=== PATIENT | female | born 1945 | race Asian ===

== ENCOUNTER 2022-04-05 11:59 | Inpatient (IN) | payer OTHER ==
[~2022-04-05] VITALS: Ht 157.5 cm; Wt 58.3 kg
[2022-04-05 12:05] VITALS: BP_SYST 123
[2022-04-05 12:58] LABS: BASOPHILS # (AUTO) 0.1 K/uL (0.0-0.2); BASOPHILS % (AUTO) 1.1 % (0.0-2.0); EOSINOPHILS # (AUTO) 0.1 K/uL (0.0-0.4); EOSINOPHILS % (AUTO) 1.1 % (0.0-4.0); HEMATOCRIT 39.1 % (36-48); LYMPHOCYTES # (AUTO) 1.9 K/uL (1.0-5.5); MEAN CORPUSCULAR HEMOGLOBIN 28 pg (27-31); MEAN CORPUSCULAR HGB CONC 33 % (32-36); MEAN CORPUSCULAR VOLUME 84 fL (79.0-98.0); MONOCYTES # (AUTO) 0.7 K/uL (0.0-1.0); MONOCYTES % (AUTO) 7.8 % (1.7-9.3); NEUTROPHILS # (AUTO) 5.6 K/uL (1.8-7.7); PLATELET COUNT (AUTO) 320 K/uL (130-430); RED BLOOD CELL COUNT(AUTO) 4.64 MIL/uL (4.2-6.2); RED CELL DISTRIBUTION WIDTH 14.9 % (9.0-15.0); WHITE BLOOD COUNT (AUTO) 8.3 K/uL (4.8-10.8)
[2022-04-05 13:38] LABS: ANION GAP 6 (5-15); CALCIUM 8.8 mg/dL (8.4-11.0); CHLORIDE 104 mmol/L (98-107); CREATININE 0.86 mg/dL (0.55-1.30); GLUCOSE 114 mg/dL (70-99); UREA NITROGEN, BLOOD 12 mg/dL (8-21)
[2022-04-05 13:45] LABS: ALANINE AMINOTRANSFERASE 46 U/L (12-78); ALBUMIN 3.3 g/dL (3.4-4.8); ASPARTATE AMINOTRANSFERASE 27 U/L (10-37); TOTAL BILIRUBIN 0.4 mg/dL (0.0-1.0)
[2022-04-05] MEDS ORDERED: AZITHROMYCIN 500 MG in NS 250 ML IV ONE (15:15)
[2022-04-05] MEDS ORDERED: cefTRIAXone 1 GM IVPB PREMIX 50 ML IV ONE (15:15)
[2022-04-05] MEDS ORDERED: AZITHROMYCIN 500 MG/VIAL (ZITHROMAX) IV ONE (16:03)
[2022-04-05] MEDS ORDERED: FUROSEMIDE 20 MG/2 ML VIAL IVP ONE (16:30)
[2022-04-05] MEDS ORDERED: VERA240T93 (16:48)
[2022-04-05] MEDS ORDERED: HYDR12.585 PO (16:48)
[2022-04-05 19:57] VITALS: BP_SYST 116
[2022-04-05] MEDS ORDERED: TEMAZEPAM 7.5 MG CAPSULE PO ONE (22:57)
[2022-04-05] MEDS ORDERED: ACETAMINOPHEN 325 MG TABLET PO PRN (23:00)
[2022-04-06] VITALS (7 sets, daily range): BP systolic 107–139
[2022-04-06 06:29] LABS: BASOPHILS # (AUTO) 0.1 K/uL (0.0-0.2); BASOPHILS % (AUTO) 0.9 % (0.0-2.0); EOSINOPHILS # (AUTO) 0.2 K/uL (0.0-0.4); EOSINOPHILS % (AUTO) 2.7 % (0.0-4.0); HEMATOCRIT 38.3 % (36-48); HEMOGLOBIN 12.7 g/dL (12.0-16.0); LYMPHOCYTES # (AUTO) 1.7 K/uL (1.0-5.5); LYMPHOCYTES % (AUTO) 27.9 % (20.5-51.5); MEAN CORPUSCULAR HEMOGLOBIN 28 pg (27-31); MEAN CORPUSCULAR HGB CONC 33 % (32-36); MEAN CORPUSCULAR VOLUME 85 fL (79.0-98.0); MONOCYTES # (AUTO) 0.5 K/uL (0.0-1.0); MONOCYTES % (AUTO) 8.8 % (1.7-9.3); NEUTROPHILS # (AUTO) 3.7 K/uL (1.8-7.7); NEUTROPHILS % (AUTO) 59.7 % (40.0-70.0); PLATELET COUNT (AUTO) 296 K/uL (130-430); RED BLOOD CELL COUNT(AUTO) 4.52 MIL/uL (4.2-6.2); WHITE BLOOD COUNT (AUTO) 6.2 K/uL (4.8-10.8)
[2022-04-06 07:37] LABS: ALANINE AMINOTRANSFERASE 41 U/L (12-78); ALBUMIN 3.1 g/dL (3.4-4.8); ANION GAP 9 (5-15); ASPARTATE AMINOTRANSFERASE 24 U/L (10-37); CALCIUM 8.4 mg/dL (8.4-11.0); CHLORIDE 106 mmol/L (98-107); CREATININE 0.93 mg/dL (0.55-1.30); GLUCOSE 115 mg/dL (70-99); TOTAL BILIRUBIN 0.6 mg/dL (0.0-1.0); UREA NITROGEN, BLOOD 11 mg/dL (8-21)
[2022-04-06] MEDS: DOCUSATE SODIUM 100 MG CAPSULE PO SCH ×2 (08:32→21:03)
[2022-04-06] MEDS ORDERED: POTASSIUM CHLORIDE 20 MEQ/PKT PACKET PO ONE (11:30)
[2022-04-06] MEDS ORDERED: VERAPAMIL HCL SCH (12:45)
[2022-04-06] MEDS ORDERED: HYDROCHLOROTHIAZIDE 12.5 MG CAPSULE (HCTZ) PO ONE (13:15)
[2022-04-06] MEDS ORDERED: VERAPAMIL HCL 120 MG TABLET.SA PO ONE (13:45)
[2022-04-06] MEDS ORDERED: FUROSEMIDE 40 MG/4 ML VIAL IVP ONE (17:00)
[2022-04-06] MEDS ORDERED: TEMAZEPAM 7.5 MG CAPSULE PO SCH (21:00)
[2022-04-06] MEDS: CARVEDILOL 6.25 MG TABLET (COREG) PO SCH (21:01)
[2022-04-06] MEDS: VERAPAMIL HCL 120 MG TABLET.SA PO SCH (21:02)
[2022-04-07 02:00] VITALS: BP_SYST 112
[2022-04-07 06:58] LABS: BASOPHILS # (AUTO) 0.1 K/uL (0.0-0.2); BASOPHILS % (AUTO) 1.3 % (0.0-2.0); EOSINOPHILS # (AUTO) 0.2 K/uL (0.0-0.4); EOSINOPHILS % (AUTO) 2.4 % (0.0-4.0); HEMATOCRIT 37.5 % (36-48); HEMOGLOBIN 12.7 g/dL (12.0-16.0); LYMPHOCYTES # (AUTO) 1.4 K/uL (1.0-5.5); LYMPHOCYTES % (AUTO) 20.1 % (20.5-51.5); MEAN CORPUSCULAR HEMOGLOBIN 29 pg (27-31); MEAN CORPUSCULAR HGB CONC 34 % (32-36); MEAN CORPUSCULAR VOLUME 84 fL (79.0-98.0); MONOCYTES # (AUTO) 0.5 K/uL (0.0-1.0); MONOCYTES % (AUTO) 7.8 % (1.7-9.3); NEUTROPHILS # (AUTO) 4.8 K/uL (1.8-7.7); NEUTROPHILS % (AUTO) 68.4 % (40.0-70.0); PLATELET COUNT (AUTO) 305 K/uL (130-430); RED BLOOD CELL COUNT(AUTO) 4.46 MIL/uL (4.2-6.2); RED CELL DISTRIBUTION WIDTH 14.7 % (9.0-15.0)
[2022-04-07 07:20] VITALS: BP_SYST 96
[2022-04-07 07:38] LABS: ALANINE AMINOTRANSFERASE 34 U/L (12-78); ALBUMIN 3.1 g/dL (3.4-4.8); ANION GAP 10 (5-15); ASPARTATE AMINOTRANSFERASE 27 U/L (10-37); CALCIUM 8.6 mg/dL (8.4-11.0); CHLORIDE 104 mmol/L (98-107); CREATININE 1.03 mg/dL (0.55-1.30); GLUCOSE 109 mg/dL (70-99); TOTAL BILIRUBIN 0.6 mg/dL (0.0-1.0); UREA NITROGEN, BLOOD 19 mg/dL (8-21)
[2022-04-07] MEDS: DOCUSATE SODIUM 100 MG CAPSULE PO SCH (08:58)
[2022-04-07 09:00] VITALS: BP_SYST 105
[2022-04-07] MEDS ORDERED: HYDROCHLOROTHIAZIDE 12.5 MG CAPSULE (HCTZ) PO SCH (09:00)
[2022-04-07] MEDS: VERAPAMIL HCL 120 MG TABLET.SA PO SCH (09:00)
[2022-04-07] MEDS: CARVEDILOL 6.25 MG TABLET (COREG) PO SCH (09:02)
[2022-04-07] MEDS ORDERED: POTASSIUM CHLORIDE 20 MEQ/PKT PACKET PO ONE (10:15)
[2022-04-07 11:31] VITALS: BP_SYST 116
[2022-04-07 15:33] VITALS: BP_SYST 111
[2022-04-07] MEDS ORDERED: COR6.25 PO (16:57)
[2022-04-07] MEDS ORDERED: DOCU-144 PO (16:57)
[2022-04-07] MEDS ORDERED: TEMA7.5C2 PO (16:57)
[2022-04-07] MEDS ORDERED: METH-776 PO (17:01)
[2022-04-07] MEDS ORDERED: AZIT500T10 PO (17:01)
[2022-04-07 17:14] VITALS: BP_SYST 111
== END 2022-04-07 17:35 | disposition home or self-care (01) | DRG 203 ==
LOC: SED 11:59 → STU 16:31
PROVIDERS: ADMIT Internal Medicine; ATTEND Internal Medicine
DX: J45.901 Unspecified asthma with (acute) exacerbation (principal); E87.6 Hypokalemia; I11.0 Hypertensive heart disease with heart failure; I50.9 Heart failure, unspecified; I35.0 Nonrheumatic aortic (valve) stenosis; E88.09 Other disorders of plasma-protein metabolism, not elsewhere classified; R73.9 Hyperglycemia, unspecified; Z20.822 Contact with and (suspected) exposure to COVID-19
CPT/HCPCS: 36415; 71045; 80053; 83605; 83735; 83880; 84484; 85025; 87040; 93005; 93306; 99285; G0378; J0456; J0696; J1940

== ENCOUNTER 2022-05-12 13:28 | Inpatient (IN) | payer OTHER ==
[~2022-05-12] VITALS: Ht 160 cm; Wt 58.5 kg
[2022-05-12 13:28] VITALS: BP_SYST 123
[~2022-05-12 13:28] MED LIST: AZIT500T10 PO; COR6.25 PO; DOCU-144 PO; HYDR12.585 PO; METH-776 PO; TEMA7.5C2 PO; VERA240T93
[2022-05-12 14:28] LABS: BASOPHILS # (AUTO) 0.1 K/uL (0.0-0.2); EOSINOPHILS # (AUTO) 0.1 K/uL (0.0-0.4); EOSINOPHILS % (AUTO) 0.9 % (0.0-4.0); HEMATOCRIT 40.8 % (36-48); HEMOGLOBIN 13.5 g/dL (12.0-16.0); LYMPHOCYTES # (AUTO) 1.9 K/uL (1.0-5.5); LYMPHOCYTES % (AUTO) 25.4 % (20.5-51.5); MEAN CORPUSCULAR HEMOGLOBIN 28 pg (27-31); MEAN CORPUSCULAR HGB CONC 33 % (32-36); MEAN CORPUSCULAR VOLUME 86 fL (79.0-98.0); MONOCYTES # (AUTO) 0.7 K/uL (0.0-1.0); MONOCYTES % (AUTO) 8.7 % (1.7-9.3); NEUTROPHILS # (AUTO) 4.8 K/uL (1.8-7.7); PLATELET COUNT (AUTO) 259 K/uL (130-430); RED BLOOD CELL COUNT(AUTO) 4.75 MIL/uL (4.2-6.2); RED CELL DISTRIBUTION WIDTH 15.4 % (9.0-15.0); WHITE BLOOD COUNT (AUTO) 7.5 K/uL (4.8-10.8)
[2022-05-12 14:42] LABS: ANION GAP 9 (5-15); CALCIUM 8.3 mg/dL (8.4-11.0); CHLORIDE 104 mmol/L (98-107); GLUCOSE 130 mg/dL (70-99); UREA NITROGEN, BLOOD 13 mg/dL (8-21)
[2022-05-12 14:49] LABS: ALANINE AMINOTRANSFERASE 56 U/L (12-78); ALBUMIN 3.2 g/dL (3.4-4.8); ASPARTATE AMINOTRANSFERASE 30 U/L (10-37); TOTAL BILIRUBIN 0.7 mg/dL (0.0-1.0)
[2022-05-12 15:02] LABS: PROTHROMBIN TIME 10.5 SECS (9.5-12.5)
[2022-05-12] MEDS ORDERED: NITROGLYCERIN 1 INCH (GM) OINT. TP ONE (16:45)
[2022-05-12] MEDS ORDERED: FUROSEMIDE 40 MG/4 ML VIAL IVP ONE ×2 (16:45→19:00)
[2022-05-12 18:48] LABS: BILIRUBIN,URINE NEGATIVE (NEGATIVE); BLOOD, URINE NEGATIVE (NEGATIVE); COLOR,URINE YELLOW (YELLOW); GLUCOSE,URINE NEGATIVE (NEGATIVE); KETONES,URINE 3+ (NEGATIVE); LEUKOCYTE ESTERASE ,URINE 1+ (NEGATIVE); NITRITE, URINE NEGATIVE (NEGATIVE); PROTEIN URINE NEGATIVE (NEGATIVE); UROBILINOGEN,URINE 0.2 (0.2-1.0)
[2022-05-12 18:58] LABS: CLARITY/URINE SLIGHTLY HAZY (CLEAR)
[2022-05-12 19:05] LABS: BACTERIA,URINE FEW /HPF (None Seen); MUCUS,URINE 1+ /LPF (None Seen); RBC,URINE NONE SEEN /HPF (0-3)
[2022-05-12 21:13] VITALS: BP_SYST 128
[2022-05-12] MEDS: FUROSEMIDE 40 MG/4 ML VIAL IVP SCH (22:28)
[2022-05-13 00:39] VITALS: BP_SYST 138
[2022-05-13] MEDS: FUROSEMIDE 40 MG/4 ML VIAL IVP SCH ×3 (06:35→22:06)
[2022-05-13 08:00] VITALS: BP_SYST 118
[2022-05-13] MEDS ORDERED: LOSARTAN POTASSIUM 25 MG TABLET PO ONE (12:15)
[2022-05-13 16:00] VITALS: BP_SYST 134
[2022-05-13 20:11] VITALS: BP_SYST 112
[2022-05-13] MEDS: LOSARTAN POTASSIUM 25 MG TABLET PO SCH (22:05)
[2022-05-14] VITALS: BP_SYST 102
[2022-05-14 05:27] LABS: BASOPHILS # (AUTO) 0.1 K/uL (0.0-0.2); EOSINOPHILS # (AUTO) 0.1 K/uL (0.0-0.4); EOSINOPHILS % (AUTO) 1.4 % (0.0-4.0); HEMATOCRIT 47.4 % (36-48); HEMOGLOBIN 15.9 g/dL (12.0-16.0); LYMPHOCYTES # (AUTO) 1.9 K/uL (1.0-5.5); LYMPHOCYTES % (AUTO) 23.5 % (20.5-51.5); MEAN CORPUSCULAR HEMOGLOBIN 28 pg (27-31); MEAN CORPUSCULAR HGB CONC 34 % (32-36); MEAN CORPUSCULAR VOLUME 85 fL (79.0-98.0); MONOCYTES # (AUTO) 0.9 K/uL (0.0-1.0); MONOCYTES % (AUTO) 11.6 % (1.7-9.3); NEUTROPHILS # (AUTO) 5.1 K/uL (1.8-7.7); NEUTROPHILS % (AUTO) 62.5 % (40.0-70.0); PLATELET COUNT (AUTO) 318 K/uL (130-430); RED BLOOD CELL COUNT(AUTO) 5.59 MIL/uL (4.2-6.2); RED CELL DISTRIBUTION WIDTH 15.5 % (9.0-15.0); WHITE BLOOD COUNT (AUTO) 8.1 K/uL (4.8-10.8)
[2022-05-14 05:32] LABS: ANION GAP 10 (5-15); CALCIUM 8.9 mg/dL (8.4-11.0); CHLORIDE 102 mmol/L (98-107); CREATININE 1.06 mg/dL (0.55-1.30); GLUCOSE 110 mg/dL (70-99); UREA NITROGEN, BLOOD 17 mg/dL (8-21)
[2022-05-14 08:00] VITALS: BP_SYST 100
[2022-05-14] MEDS: LOSARTAN POTASSIUM 25 MG TABLET PO SCH ×2 (09:00→21:00)
[2022-05-14 11:30] VITALS: BP_SYST 113
[2022-05-14] MEDS: FUROSEMIDE 40 MG/4 ML VIAL IVP SCH ×2 (14:24→21:17)
[2022-05-14] MEDS ORDERED: POTASSIUM CHLORIDE 20 MEQ TAB.PRT.SR PO ONE (15:30)
[2022-05-14 17:34] VITALS: BP_SYST 116; BP_SYST 145
[2022-05-14 20:25] VITALS: BP_SYST 104
[2022-05-15 00:30] VITALS: BP_SYST 108
[2022-05-15 06:36] LABS: BASOPHILS # (AUTO) 0.3 K/uL (0.0-0.2); BASOPHILS % (AUTO) 3.5 % (0.0-2.0); EOSINOPHILS # (AUTO) 0.2 K/uL (0.0-0.4); EOSINOPHILS % (AUTO) 2.9 % (0.0-4.0); HEMATOCRIT 42.3 % (36-48); LYMPHOCYTES # (AUTO) 1.9 K/uL (1.0-5.5); MEAN CORPUSCULAR HEMOGLOBIN 28 pg (27-31); MEAN CORPUSCULAR HGB CONC 33 % (32-36); MEAN CORPUSCULAR VOLUME 84 fL (79.0-98.0); MONOCYTES # (AUTO) 0.7 K/uL (0.0-1.0); MONOCYTES % (AUTO) 9.3 % (1.7-9.3); NEUTROPHILS # (AUTO) 4.1 K/uL (1.8-7.7); NEUTROPHILS % (AUTO) 57.3 % (40.0-70.0); PLATELET COUNT (AUTO) 271 K/uL (130-430); RED BLOOD CELL COUNT(AUTO) 5.02 MIL/uL (4.2-6.2); RED CELL DISTRIBUTION WIDTH 15.3 % (9.0-15.0); WHITE BLOOD COUNT (AUTO) 7.1 K/uL (4.8-10.8)
[2022-05-15 07:02] LABS: ANION GAP 7 (5-15); CALCIUM 8.7 mg/dL (8.4-11.0); CHLORIDE 105 mmol/L (98-107); CREATININE 1.08 mg/dL (0.55-1.30); GLUCOSE 151 mg/dL (70-99); UREA NITROGEN, BLOOD 19 mg/dL (8-21)
[2022-05-15 08:00] VITALS: BP_SYST 100
[2022-05-15] MEDS: LOSARTAN POTASSIUM 25 MG TABLET PO SCH (09:00)
[2022-05-15] MEDS: FUROSEMIDE 40 MG/4 ML VIAL IVP SCH (09:00)
[2022-05-15 12:00] VITALS: BP_SYST 102
[2022-05-15 12:19] VITALS: BP_SYST 136
[2022-05-15] MEDS ORDERED: LOSA25TA3 PO (13:12)
[2022-05-15] MEDS ORDERED: POTASSIUM CHLORIDE 20 MEQ TAB.PRT.SR PO ONE (13:45)
== END 2022-05-15 21:09 | disposition home or self-care (01) | DRG 291 ==
LOC: SED 13:28 → STU 17:07 → SMU 05-14 16:36
PROVIDERS: ADMIT Specialist; ATTEND Specialist
DX: I11.0 Hypertensive heart disease with heart failure (principal); I50.43 Acute on chronic combined systolic (congestive) and diastolic (congestive) heart failure; G47.00 Insomnia, unspecified; I35.8 Other nonrheumatic aortic valve disorders; E78.5 Hyperlipidemia, unspecified; Z20.822 Contact with and (suspected) exposure to COVID-19; K59.00 Constipation, unspecified; I43 Cardiomyopathy in diseases classified elsewhere; I25.10 Atherosclerotic heart disease of native coronary artery without angina pectoris; Z88.0 Allergy status to penicillin; Z90.710 Acquired absence of both cervix and uterus
CPT/HCPCS: 36415; 36600; 71045; 80048; 80053; 81000; 82803-TC; 83605; 83880; 84484; 85025; 85610-TC; 85730-TC; 87040; 87086; 93005; 96365; 99285; G0378; J1940; J1956

== ENCOUNTER 2022-06-11 14:43 | Inpatient (IN) | payer OTHER ==
[~2022-06-11] VITALS: Ht 160 cm; Wt 56.4 kg
[~2022-06-11 14:43] MED LIST changes: +LOSA25TA3 PO
[2022-06-11 14:49] VITALS: BP_SYST 136
[2022-06-11] MEDS ORDERED: ONDANSETRON 4 MG ODT TAB PO ONE (15:30)
[2022-06-11 15:46] LABS: BASOPHILS % (AUTO) 0.6 % (0.0-2.0); EOSINOPHILS % (AUTO) 0.4 % (0.0-4.0); HEMOGLOBIN 14.1 g/dL (12.0-16.0); LYMPHOCYTES # (AUTO) 2.3 K/uL (1.0-5.5); LYMPHOCYTES % (AUTO) 30.8 % (20.5-51.5); MEAN CORPUSCULAR HEMOGLOBIN 29 pg (27-31); MEAN CORPUSCULAR HGB CONC 33 % (32-36); MEAN CORPUSCULAR VOLUME 87 fL (79.0-98.0); MONOCYTES # (AUTO) 0.7 K/uL (0.0-1.0); MONOCYTES % (AUTO) 8.6 % (1.7-9.3); NEUTROPHILS # (AUTO) 4.5 K/uL (1.8-7.7); NEUTROPHILS % (AUTO) 59.6 % (40.0-70.0); PLATELET COUNT (AUTO) 203 K/uL (130-430); RED BLOOD CELL COUNT(AUTO) 4.95 MIL/uL (4.2-6.2); RED CELL DISTRIBUTION WIDTH 16.3 % (9.0-15.0); WHITE BLOOD COUNT (AUTO) 7.6 K/uL (4.8-10.8)
[2022-06-11 15:58] LABS: ANION GAP 11 (5-15); CALCIUM 8.7 mg/dL (8.4-11.0); CHLORIDE 108 mmol/L (98-107); GLUCOSE 142 mg/dL (70-99); UREA NITROGEN, BLOOD 53 mg/dL (8-21)
[2022-06-11 16:03] LABS: ALANINE AMINOTRANSFERASE 93 U/L (12-78); ALBUMIN 3.2 g/dL (3.4-4.8); ASPARTATE AMINOTRANSFERASE 70 U/L (10-37); LIPASE 107 U/L (73-393); TOTAL BILIRUBIN 1.1 mg/dL (0.0-1.0)
[2022-06-11] MEDS ORDERED: PANTOPRAZOLE SODIUM 40 MG/VIAL (PROTONIX) IVP ONE (16:45)
[2022-06-11] MEDS ORDERED: NS 500 ML IV ONE (16:45)
[2022-06-11] MEDS ORDERED: ONDANSETRON HCL 4 MG/2 ML VIAL IVP ONE (16:45)
[2022-06-11] MEDS ORDERED: KETOROLAC TROMETHAMINE 15 MG VIAL IVP ONE (16:45)
[2022-06-11] MEDS ORDERED: FUROSEMIDE 40 MG/4 ML VIAL IVP ONE (17:30)
[2022-06-11] MEDS ORDERED: ASPIRIN 81 MG TABLET(ECOTRIN) PO ONE (18:00)
[2022-06-11 18:26] LABS: BILIRUBIN,URINE NEGATIVE (NEGATIVE); BLOOD, URINE TRACE (NEGATIVE); CLARITY/URINE CLEAR (CLEAR); COLOR,URINE YELLOW (YELLOW); GLUCOSE,URINE NEGATIVE (NEGATIVE); KETONES,URINE NEGATIVE (NEGATIVE); LEUKOCYTE ESTERASE ,URINE NEGATIVE (NEGATIVE); NITRITE, URINE NEGATIVE (NEGATIVE); PROTEIN URINE TRACE (NEGATIVE); UROBILINOGEN,URINE 0.2 (0.2-1.0)
[2022-06-11 18:28] LABS: BACTERIA,URINE FEW /HPF (None Seen); RBC,URINE 0-3 /HPF (0-3); WBC,URINE 0-3 /HPF (0-3)
[2022-06-11 18:29] LABS: MUCUS,URINE 2+ /LPF (None Seen)
[2022-06-11] MEDS ORDERED: FURO-150 PO (19:18)
[2022-06-11] MEDS: FUROSEMIDE 40 MG/4 ML VIAL IVP SCH (21:00)
[2022-06-11 21:40] VITALS: BP_SYST 95
[2022-06-12] VITALS: BP_SYST 96
[2022-06-12] MEDS ORDERED: ASPI-1457 PO (03:13)
[2022-06-12 08:15] VITALS: BP_SYST 114
[2022-06-12] MEDS: FUROSEMIDE 40 MG/4 ML VIAL IVP SCH ×2 (09:23→21:00)
[2022-06-12 11:44] VITALS: BP_SYST 98
[2022-06-12] MEDS ORDERED: ACETAMINOPHEN 500 MG TABLET PO PRN (13:00)
[2022-06-12] MEDS ORDERED: TEMAZEPAM 15 MG CAPSULE PO PRN (14:30)
[2022-06-12 16:30] VITALS: BP_SYST 124; BP_SYST 91
[2022-06-12 19:45] VITALS: BP_SYST 80
[2022-06-12] MEDS ORDERED: ALBUMIN HUMAN 25% 100 ML IV ONE (20:15)
[2022-06-12] MEDS: DOCUSATE SODIUM 100 MG CAPSULE PO SCH (20:29)
[2022-06-12] MEDS: LOSARTAN POTASSIUM 25 MG TABLET PO SCH (21:00)
[2022-06-12] MEDS: CARVEDILOL 6.25 MG TABLET (COREG) PO SCH (21:00)
[2022-06-13] VITALS: BP_SYST 94
[2022-06-13 07:03] LABS: BASOPHILS # (AUTO) 0.1 K/uL (0.0-0.2); BASOPHILS % (AUTO) 0.8 % (0.0-2.0); EOSINOPHILS # (AUTO) 0.1 K/uL (0.0-0.4); EOSINOPHILS % (AUTO) 0.9 % (0.0-4.0); HEMATOCRIT 43.5 % (36-48); LYMPHOCYTES # (AUTO) 2.3 K/uL (1.0-5.5); LYMPHOCYTES % (AUTO) 31.8 % (20.5-51.5); MEAN CORPUSCULAR HEMOGLOBIN 28 pg (27-31); MEAN CORPUSCULAR HGB CONC 32 % (32-36); MEAN CORPUSCULAR VOLUME 88 fL (79.0-98.0); MONOCYTES # (AUTO) 0.8 K/uL (0.0-1.0); MONOCYTES % (AUTO) 10.7 % (1.7-9.3); NEUTROPHILS # (AUTO) 4.1 K/uL (1.8-7.7); NEUTROPHILS % (AUTO) 55.8 % (40.0-70.0); PLATELET COUNT (AUTO) 192 K/uL (130-430); RED BLOOD CELL COUNT(AUTO) 4.92 MIL/uL (4.2-6.2); RED CELL DISTRIBUTION WIDTH 16.3 % (9.0-15.0); WHITE BLOOD COUNT (AUTO) 7.4 K/uL (4.8-10.8)
[2022-06-13 07:22] LABS: ANION GAP 13 (5-15); CHLORIDE 106 mmol/L (98-107); CREATININE 1.98 mg/dL (0.55-1.30); GLUCOSE 109 mg/dL (70-99); UREA NITROGEN, BLOOD 65 mg/dL (8-21)
[2022-06-13] MEDS: CARVEDILOL 6.25 MG TABLET (COREG) PO SCH (09:00)
[2022-06-13] MEDS ORDERED: HYDROCHLOROTHIAZIDE 12.5 MG CAPSULE (HCTZ) PO SCH (09:00)
[2022-06-13] MEDS ORDERED: FUROSEMIDE 20 MG TABLET PO SCH (09:00)
[2022-06-13] MEDS: LOSARTAN POTASSIUM 25 MG TABLET PO SCH (09:00)
[2022-06-13] MEDS: FUROSEMIDE 40 MG/4 ML VIAL IVP SCH (09:00)
[2022-06-13] MEDS: ASPIRIN 81 MG TABLET(ECOTRIN) PO SCH (09:10)
[2022-06-13] MEDS: DOCUSATE SODIUM 100 MG CAPSULE PO SCH ×2 (09:10→20:46)
[2022-06-13 11:27] VITALS: BP_SYST 104
[2022-06-13] MEDS ORDERED: HYDROCHLOROTHIAZIDE 12.5 MG CAPSULE (HCTZ) PO ONE (12:00)
[2022-06-13] MEDS ORDERED: [UNRECOGNIZED DRUG - OTHER] PO ONE (12:00)
[2022-06-13] MEDS ORDERED: MILK OF MAGNESIA 30 ML UDC PO PRN (12:30)
[2022-06-13] MEDS ORDERED: LEVOFLOXACIN 250 MG/D5W 50 ML IV SCH (14:00)
[2022-06-13] MEDS: cefTRIAXone 1 GM IVPB PREMIX 50 ML IV SCH (15:27)
[2022-06-13 17:04] VITALS: BP_SYST 117
[2022-06-13 20:00] VITALS: BP_SYST 94
[2022-06-13] MEDS: CARVEDILOL 3.125 MG TABLET (COREG) PO SCH (21:00)
[2022-06-14] VITALS: BP_SYST 118
[2022-06-14 07:56] LABS: BASOPHILS % (AUTO) 0.6 % (0.0-2.0); EOSINOPHILS % (AUTO) 0.6 % (0.0-4.0); HEMATOCRIT 43.4 % (36-48); HEMOGLOBIN 14.2 g/dL (12.0-16.0); LYMPHOCYTES # (AUTO) 1.5 K/uL (1.0-5.5); LYMPHOCYTES % (AUTO) 22.2 % (20.5-51.5); MEAN CORPUSCULAR HEMOGLOBIN 29 pg (27-31); MEAN CORPUSCULAR HGB CONC 33 % (32-36); MEAN CORPUSCULAR VOLUME 88 fL (79.0-98.0); MONOCYTES # (AUTO) 0.7 K/uL (0.0-1.0); NEUTROPHILS # (AUTO) 4.4 K/uL (1.8-7.7); NEUTROPHILS % (AUTO) 66.6 % (40.0-70.0); PLATELET COUNT (AUTO) 176 K/uL (130-430); RED BLOOD CELL COUNT(AUTO) 4.94 MIL/uL (4.2-6.2); RED CELL DISTRIBUTION WIDTH 16.7 % (9.0-15.0); WHITE BLOOD COUNT (AUTO) 6.6 K/uL (4.8-10.8)
[2022-06-14 08:05] VITALS: BP_SYST 113
[2022-06-14 08:18] LABS: ALANINE AMINOTRANSFERASE 176 U/L (12-78); ALBUMIN 3.1 g/dL (3.4-4.8); ANION GAP 13 (5-15); ASPARTATE AMINOTRANSFERASE 120 U/L (10-37); CHLORIDE 106 mmol/L (98-107); CREATININE 1.54 mg/dL (0.55-1.30); GLUCOSE 118 mg/dL (70-99); TOTAL BILIRUBIN 1.2 mg/dL (0.0-1.0); UREA NITROGEN, BLOOD 60 mg/dL (8-21)
[2022-06-14] MEDS: CARVEDILOL 3.125 MG TABLET (COREG) PO SCH (10:02)
[2022-06-14] MEDS: DOCUSATE SODIUM 100 MG CAPSULE PO SCH (10:02)
[2022-06-14] MEDS: ASPIRIN 81 MG TABLET(ECOTRIN) PO SCH (10:02)
[2022-06-14 12:00] VITALS: BP_SYST 117
[2022-06-14] MEDS ORDERED: AMOX500C2 PO (12:54)
[2022-06-14] MEDS ORDERED: AZITHROMYCIN 250 MG in NS 250 ML IV SCH (13:00)
[2022-06-14] MEDS: cefTRIAXone 1 GM IVPB PREMIX 50 ML IV SCH (14:17)
[2022-06-14 14:21] LABS: BASOPHILS % (AUTO) 0.5 % (0.0-2.0); EOSINOPHILS % (AUTO) 0.7 % (0.0-4.0); HEMOGLOBIN 14.8 g/dL (12.0-16.0); LYMPHOCYTES # (AUTO) 2.1 K/uL (1.0-5.5); LYMPHOCYTES % (AUTO) 31.1 % (20.5-51.5); MEAN CORPUSCULAR HEMOGLOBIN 29 pg (27-31); MEAN CORPUSCULAR HGB CONC 33 % (32-36); MEAN CORPUSCULAR VOLUME 88 fL (79.0-98.0); MONOCYTES # (AUTO) 0.7 K/uL (0.0-1.0); NEUTROPHILS # (AUTO) 3.9 K/uL (1.8-7.7); NEUTROPHILS % (AUTO) 57.7 % (40.0-70.0); PLATELET COUNT (AUTO) 183 K/uL (130-430); RED BLOOD CELL COUNT(AUTO) 5.08 MIL/uL (4.2-6.2); RED CELL DISTRIBUTION WIDTH 16.6 % (9.0-15.0); WHITE BLOOD COUNT (AUTO) 6.8 K/uL (4.8-10.8)
[2022-06-14 15:28] VITALS: BP_SYST 91
[2022-06-14 16:00] VITALS: BP_SYST 118
[2022-06-15 11:03] LABS: CREATININE, URINE 76.7 mg/dL (Not Estab.); MICROALBUMIN URINE RANDOM 73.7 ug/mL (Not Estab.)
== END 2022-06-14 17:20 | disposition home or self-care (01) | DRG 193 ==
LOC: SED 14:43 → STU 18:58
PROVIDERS: ADMIT Specialist; ATTEND Specialist
DX: J18.9 Pneumonia, unspecified organism (principal); I50.23 Acute on chronic systolic (congestive) heart failure; N17.0 Acute kidney failure with tubular necrosis; I13.0 Hypertensive heart and chronic kidney disease with heart failure and stage 1 through stage 4 chronic kidney disease, or unspecified chronic kidney disease; I24.8 Other forms of acute ischemic heart disease; N18.9 Chronic kidney disease, unspecified; Z20.822 Contact with and (suspected) exposure to COVID-19; K21.9 Gastro-esophageal reflux disease without esophagitis; Z88.1 Allergy status to other antibiotic agents; Z79.82 Long term (current) use of aspirin
CPT/HCPCS: 36415; 71045; 71046-TC; 80048; 80053; 81000; 82043; 82570; 83690; 83880; 83935; 84100; 84302; 84484; 84560; 85025; 86738; 87070-TC; 87081; 87205-TC; 93005; 96361; 96374; 96375; 99285; C9113; G0378; J0456; J0696; J1885; J1940; J1956; J2405; J7040; J7050

== ENCOUNTER 2022-10-14 14:30 | Emergency (ER) | payer OTHER ==
[~2022-10-14 14:30] MED LIST changes: +AMOX500C2 PO; +ASPI-1457 PO; -AZIT500T10 PO; +FURO-150 PO; -METH-776 PO; -VERA240T93
[2022-10-14 14:40] VITALS: BP_SYST 123; PULSE 65; RESP 18; TEMP 97.3; O2SAT 99
[2022-10-14 18:30] LABS: BASOPHILS % (AUTO) 0.1 % (0.0-2.0); EOSINOPHILS % (AUTO) 0.1 % (0.0-4.0); HEMATOCRIT 40.6 % (36-48); HEMOGLOBIN 13.3 g/dL (12.0-16.0); LYMPHOCYTES # (AUTO) 0.7 K/uL (1.0-5.5); LYMPHOCYTES % (AUTO) 6.7 % (20.5-51.5); MEAN CORPUSCULAR HEMOGLOBIN 30 pg (27-31); MEAN CORPUSCULAR HGB CONC 33 % (32-36); MEAN CORPUSCULAR VOLUME 93 fL (79.0-98.0); MONOCYTES # (AUTO) 0.4 K/uL (0.0-1.0); MONOCYTES % (AUTO) 3.9 % (1.7-9.3); NEUTROPHILS # (AUTO) 9.4 K/uL (1.8-7.7); NEUTROPHILS % (AUTO) 89.2 % (40.0-70.0); PLATELET COUNT (AUTO) 302 K/uL (130-430); RED BLOOD CELL COUNT(AUTO) 4.37 MIL/uL (4.2-6.2); WHITE BLOOD COUNT (AUTO) 10.6 K/uL (4.8-10.8)
[2022-10-14 18:37] LABS: ANION GAP 17 (5-15); CALCIUM 8.9 mg/dL (8.4-11.0); CARBON DIOXIDE 20 mmol/L (23-29); CHLORIDE 96 mmol/L (98-107); CREATININE 3.68 mg/dL (0.55-1.30); GLUCOSE 138 mg/dL (74-106); POTASSIUM 5.7 mmol/L (3.5-5.1); SODIUM SERUM 133 mmol/L (136-145); UREA NITROGEN, BLOOD 95 mg/dL (8-21)
[2022-10-14 18:55] LABS: ALANINE AMINOTRANSFERASE 39 U/L (12-78); ALBUMIN 3.8 g/dL (3.4-4.8); ASPARTATE AMINOTRANSFERASE 47 U/L (10-37); TOTAL BILIRUBIN 2.4 mg/dL (0.0-1.0); TOTAL PROTEIN, SERUM 8.6 g/dL (6.4-8.3)
[2022-10-14] MEDS ORDERED: MORPHINE 2 MG/ML INJ. SYRINGE IVP ONE (19:00)
[2022-10-14] MEDS ORDERED: ONDANSETRON HCL 4 MG/2 ML VIAL IVP ONE (19:00)
[2022-10-14 19:09] LABS: INR 4.3 (0.8-1.2); PROTHROMBIN TIME 41.5 SECS (9.5-12.5)
[2022-10-14] MEDS ORDERED: PHYTONADIONE 10 MG/ML AMP IM ONE (19:15)
[2022-10-14] MEDS ORDERED: WATER FOR INJECTION STERILE IV ONE (19:30)
[2022-10-14] MEDS ORDERED: HUMAN PROTHROMBIN COMPLX IV ONE (19:30)
[2022-10-14 20:32] VITALS: BP_SYST 147; PULSE 61; RESP 18; TEMP 97.6; O2SAT 95
== END 2022-10-14 20:32 | disposition short-term general hospital (02) ==
LOC: SED 14:30
DX: I60.9 Nontraumatic subarachnoid hemorrhage, unspecified (principal); R77.8 Other specified abnormalities of plasma proteins; R26.9 Unspecified abnormalities of gait and mobility; I10 Essential (primary) hypertension; Z88.1 Allergy status to other antibiotic agents; Z79.899 Other long term (current) drug therapy
CPT/HCPCS: 99291; 70450; 96374; 96375; 80053; 83880; 85025; 85610; 85730; 84484; 36415; 93005; 71045; 72125; 76376; J2405; J2270